=== PATIENT | male | born 1965 | race Caucasian/White ===

== ENCOUNTER → 2017-11-12 08:04 | Outpatient (CLI) | payer MEDICAID ==
[2015-10-04 08:02] VITALS: BMI 47.5
[~2017-11-12 08:04] MED LIST: ECOTRIN325 MG PO; PACERONE200 MG PO
[2017-11-12 09:08] LABS: ALBUMIN 3.8 g/dL (3.4-5.0); BILIRUBIN - DIRECT 0.07 mg/dL (0.00-0.30); BILIRUBIN - INDIRECT 0.25 mg/dL (0.00-1.00); BILIRUBIN - TOTAL 0.32 mg/dL (0.2-1.3); PROTEIN - SERUM 7.2 g/dL (6.4-8.2)
== END | disposition home or self-care (01) ==
LOC: D.US 08:04
PROVIDERS: Internal Medicine Gastroenterology
DX: R74.8 Abnormal levels of other serum enzymes (principal); E83.119 Hemochromatosis, unspecified

== ENCOUNTER → 2018-05-15 08:58 | Outpatient (CLI) | payer MEDICAID ==
[2015-10-04 08:02] VITALS: BMI 47.5
[2018-05-15 10:36] LABS: ALBUMIN 3.8 g/dL (3.4-5.0); BILIRUBIN - DIRECT 0.12 mg/dL (0.00-0.30); BILIRUBIN - INDIRECT 0.34 mg/dL (0.00-1.00); BILIRUBIN - TOTAL 0.46 mg/dL (0.2-1.3); PROTEIN - SERUM 7.7 g/dL (6.4-8.2)
== END | disposition home or self-care (01) ==
LOC: D.US 08:58
PROVIDERS: Internal Medicine Gastroenterology
DX: K76.0 Fatty (change of) liver, not elsewhere classified (principal)